=== PATIENT | female | born 1990 | race Caucasian/White ===

== ENCOUNTER 2022-12-01 16:25 | Outpatient (CLI) | payer BC, SELFPAY | END 2022-12-01 16:26 | disposition home or self-care (01) | PROVIDERS: PCP Physician Assistant Medical; Visit Provider Physician Assistant Medical | DX: N92.6 Irregular menstruation, unspecified (principal); F41.9 Anxiety disorder, unspecified | CPT/HCPCS: 84443; 84702 ==

== ENCOUNTER 2022-12-09 15:00 | Outpatient (CLI) | payer BC, SELFPAY | END 2022-12-09 15:01 | disposition home or self-care (01) | LOC: NFLDREF 12-10 00:45 | PROVIDERS: PCP Physician Assistant Medical; Referring Provider Physician Assistant Medical; Visit Provider Obstetrics & Gynecology | DX: N92.6 Irregular menstruation, unspecified (principal); N93.9 Abnormal uterine and vaginal bleeding, unspecified | CPT/HCPCS: 87491; 87591 ==